=== PATIENT | male | born 1995 ===

== ENCOUNTER 2017-01-29 17:23 | Observation (INO) | payer OTHER ==
[2017-01-29] MEDS ORDERED: HOME MEDICATION LIST NEEDED 1 EA EACH MC ONE (17:38)
[2017-01-29] MEDS ORDERED: IBUPROFEN 600 MG TABLET PO PRN (17:41)
[2017-01-29 17:54] LABS: ALBUMIN 4.7 g/dL (3.5-5.0); BILIRUBIN, DIRECT 0.1 mg/dL (0.0-0.4); BILIRUBIN, TOTAL 0.7 mg/dL (0.2-1.3); TOTAL PROTEIN 8.1 g/dL (6.3-8.2)
[2017-01-29] MEDS ORDERED: ONDANSETRON HCL 4 MG/2 ML VIAL IV PRN (18:14)
[2017-01-29] MEDS: DEXTROSE 5% NS 1000 ML 1,000 ML IV SCH (18:27)
[2017-01-29] MEDS ORDERED: DEXTROSE 5% NS 1000 ML 1,000 ML IV ONE (18:29)
--- NOTE | 2017-01-29 18:43 | RADIOLOGY REPORT ---
HISTORY: Fever. COMPARISON: None FINDINGS: PA and lateral chest radiographs reveal the cardiac silhouette is normal in size. No pneumothorax is identified. The lungs are clear. No acute osseous fractures are identified. IMPRESSION: Negative chest. Final Electronic Signature: This report was electronically signed by Sg Perdomo MD on 01/30/20 17 6:41 PM. lucy /
[2017-01-29] MEDS ORDERED: ACETAMINOPHEN 325 MG TABLET PO PRN (19:00)
[2017-01-30] MEDS: DEXTROSE 5% NS 1000 ML 1,000 ML IV SCH (00:54)
[2017-01-30 06:25] VITALS: BP 113/57; PULSE 93; RESP 22; TEMP 99.1; O2SAT 95
[2017-01-30 07:07] LABS: A/G RATIO 1.2; ALBUMIN 3.6 g/dL (3.5-5.0); ALKALINE PHOSPHATASE 62 U/L (38-126); ALT 36 U/L (21-72); AST 26 U/L (17-59); BILIRUBIN, TOTAL 0.6 mg/dL (0.2-1.3); BLOOD UREA NITROGEN 10 mg/dL (9-20); CALCIUM 9.4 mg/dL (8.4-10.2); CHLORIDE 105 mmol/L (98-107); EST GLOMERULAR FILTRATION RATE > 60 mL/min; GLUCOSE 100 mg/dL (70-100); POTASSIUM 3.9 mmol/L (3.5-5.1); SODIUM 138 mmol/L (137-145); TOTAL PROTEIN 6.6 g/dL (6.3-8.2)
[2017-01-30 07:30] LABS: EOSINOPHILS 0.8 % (0.0-6.0); EOSINOPHILS# 0.1 X 10^3uL (0.0-0.4); HEMATOCRIT 40.4 % (42.0-54.0); HEMOGLOBIN 13.9 g/dL (14.0-18.0); LYMPHOCYTES 17.2 % (20.0-40.0); LYMPHOCYTES# 1.1 X 10^3uL (0.8-3.8); MEAN CELL VOLUME 82.5 fL (80.0-100.0); MEAN CORPUS. HGB CONCENTRATION 34.3 g/dL (32.0-36.0); MEAN CORPUSCULAR HEMOGLOBIN 28.4 pg (29.0-35.0); MEAN PLATELET VOLUME 8.6 fL (7.4-10.4); MONOCYTES 7.5 % (2.0-10.0); MONOCYTES# 0.5 X 10^3uL (0.2-1.0); NEUTROPHILS 74.5 % (54.0-75.0); RED BLOOD COUNT 4.89 X 10^6uL (4.20-6.10); WHITE BLOOD COUNT 6.7 X 10^3uL (3.9-10.7)
--- NOTE | 2017-01-30 09:22 | DC SUMMARY: IM Note ---
Discharge Summary: IM/Peds Provider: Date of Admission: 01/29/17 Admitting Provider: BECKI SANTO MD Attending Provider: BECKI SANTO MD Discharging Provider: BECKI SANTO MD Primary Care Provider: Discharge Date: 01/30/17 - Diagnosis (1) Dehydration Status: Acute (2) Orthostatic hypotension Status: Acute (3) Nausea Status: Acute Hospital Course: Pt admitted after hours of IV hydration in clinic, still orthostatic. Feels fine on his feet now, up and voiding, eating and drinking. Labs and CXR were very reassuring. This appears to have been a viral syndrome (no further fever, no leukocytosis,BCx P but unlikely to yield anything) and simple home care will do well from here. Encouraged to see his doc at home if fever, nausea, rapid heartrate continue. - Time Spent with Patient Total time spent providing and/or coordinating discharge services: Time with patient DS: Less than 30 minutes Discharge - Patient/Caregiver Discharge Instructions Activity Level: take it easy until you feel stronger Diet: as tolerated; keep it simple, fluids are the important thing Additional Instructions: See your doc this week if nausea, fever, weakness or elevated heart rate (100 or more) continue. Overall discharge status: patient is progressing back to baseline Disposition: HOME, SELF-CARE Discharge Summary Data - Medication History Medication History: Home Medications Omeprazole 20 mg PO DAILY 01/30/17 Inpatient Medications 01/29/17 17:41 Ibuprofen [Motrin] 600 mg PO Q6H PRN 01/29/17 18:00 Dextrose 5% Ns 1000 ml [D5 Ns 1000 ml] 1,000 ml IV CONT 01/29/17 18:14 Ondansetron HCl [Zofran] 4 mg IV Q6H PRN 01/29/17 19:00 Acetaminophen [Tylenol] 650 mg PO Q6H PRN Procedures and tests throughout hospitalization: Completed Lab Orders 01/29/17 17:38 HEPATIC PANEL [CHEM] Urgent 01/30/17 05:00 cmp [COMPREHENSIVE METABOLIC PANEL] [CHEM] AMDRAW Completed Imaging Orders 01/29/17 17:41 CXR 2V [id number] [RAD] Stat Pending Orders 01/29/17 17:38 Admit: Observation Routine Activity: BRP w/ Assist Only . Advance diet as tolerated . Intake and Output QSHIFT I&O Resuscitation Status Routine Titrate Oxygen TITRATE B/W 88-92% Vital Signs ROUTINE VITALS (Q4H) 01/29/17 17:41 Ibuprofen [Motrin] 600 mg PO Q6H PRN 01/29/17 18:00 Dextrose 5% Ns 1000 ml [D5 Ns 1000 ml] 1,000 ml IV CONT 01/29/17 18:14 Ondansetron HCl [Zofran] 4 mg IV Q6H PRN 01/29/17 18:18 BLOOD CULTURE [BC] Urgent 01/29/17 19:00 Acetaminophen [Tylenol] 650 mg PO Q6H PRN 01/29/17 20:30 BLOOD CULTURE [BC] Routine BLOOD CULTURE [BC] Routine 01/30/17 05:00 CBC AUTO DIF, MDIF/RMOR IF IND [HEM] AMDRAW COMPREHENSIVE METABOLIC PANEL [CHEM] Routine 01/30/17 Breakfast Full Liquid [DIET] Labs on day of discharge: Labs from last 24 hours 01/30/17 01/30/17 01/29/17 05:00 05:00 17:38 WBC 6.7 RBC 4.89 Hgb 13.9 L Hct 40.4 L MCV 82.5 MCH 28.4 L MCHC 34.3 RDW 13.0 Plt Count 219 MPV 8.6 Neutrophils % 74.5 Lymphocytes % 17.2 L Eosinophils % 0.8 Basophils % 0.0 Neutrophils # 5.0 Lymphocytes # 1.1 Monocytes 7.5 Monocytes # 0.5 Eosinophils # 0.1 Basophils # 0.0 Sodium 138 Pending Potassium 3.9 Pending Chloride 105 Pending Carbon Dioxide 23 Pending BUN 10 Pending Creatinine 1.0 Pending GFR Calculation > 60 Pending Glucose 100 Pending Calcium 9.4 Pending Total Bilirubin 0.6 Pending 0.7 Direct Bilirubin 0.1 AST 26 Pending 73 H ALT 36 Pending 44 Alkaline Phosphatase 62 Pending 98 Total Protein 6.6 Pending 8.1 Albumin 3.6 D Pending 4.7 Albumin/Globulin Ratio 1.2 Pending IM: Discharge Physical Exam - I&O/Vital Signs I&O: Intake & Output 01/29/17 01/30/17 01/30/17 21:59 05:59 13:59 Intake Total 1300 Balance 1300 Weight 92.986 kg Intake: IV 1300 Left Antecubital 1300 Other: Urine Appearance Clear Clear Urine Color Yellow Yellow Voiding Method Toilet Toilet Vital Signs: Last Vital Signs Temp 37.3 C 01/30/17 06:23 Pulse 93 H 01/30/17 06:23 Resp 22 01/30/17 08:35 BP 113/57 01/30/17 06:23 Pulse Ox 95 01/30/17 08:35 Oxygen Delivery Method Room Air - Constitutional General appearance: Present: average body habitus. Absent: acute distress - Head Head exam: Present: atraumatic - Eye Eye exam: Present: normal appearance - ENT ENT exam: Present: mucous membranes moist - Neck Neck exam: Absent: lymphadenopathy - Respiratory Respiratory exam: Present: clear - Cardiovascular Cardiovascular exam: Present: RRR (still borderline elevated HR) - GI/Abdominal GI/Abdominal exam: Present: soft - Neurological Exam Neurological exam: Present: alert, oriented X3 - Psychiatric Psychiatric exam: Present: normal affect - Skin Skin exam: Absent: rash
--- NOTE | 2017-02-18 17:57 | HISTORY & PHYSICAL ---
Assessment and Plan: 1. Dehydration E86.0 NS infusion CBC with Auto Differential Basic Metabolic Panel promethazine (PHENERGAN) injection 12.5 mg 0.5 mL POCT URINALYSIS AUTOMATED READER CPT 73122-CPFRYZ RESULT ENTRY 2. Nausea R11.0 promethazine (PHENERGAN) injection 12.5 mg 0.5 mL Medications Placed This Encounter Medications NS infusion promethazine (PHENERGAN) injection 12.5 mg 0.5 mL There are no discontinued medications. Patient Instructions None Subjective: Patient ID: Thomas Paulson is a 21 y.o. male who presents to [facility] for feeling poorly during road trip today HPI Comments: 21 y/o [place] started feeling nauseated earlier today. Went over [place], but has been at altitude for quite a few days, so this does not seem like altitude sickness. Has been trying Tums, various OTC meds and sips of fluids today but not able to take much PO. No specific c/o x nausea; minimal DIAMOND, No abd pain, no vomitting, no diarrhea. Had nausea briefly about 5 days ago also; as did another member of their travel libertarian. Also had a nosebleed that day, but none since. Has been conscientious about fluids thr'out their trip, which [place]. CURRENT MEDICATIONS: No current outpatient prescriptions on file. Current Facility-Administered Medications Medication Dose Route Frequency Provider Last Rate Last Dose NS infusion Intravenous Continuous 200 mL/hr at 01/29/17 1400 ALLERGIES: Review of patient's allergies indicates not on file. I have reviewed, verified and personally updated the past medical history. Review of Systems Objective: Vital Signs: BP 90/64 Pulse 125 Temp 38.6 C (101.5 F) (Temporal Artery) Resp (P) 16 SpO2 96% Physical Exam Constitutional: He is oriented to person, place, and time. He appears well- developed and well-nourished. He appears distressed (near syncope on arrival and very difficult to ambulate to BR after 2-3 liters of IV fluid). Eyes: Conjunctivae are normal. Cardiovascular: Regular rhythm. No murmur heard. Pulmonary/Chest: Effort normal and breath sounds normal. No respiratory distress. Abdominal: Soft. Bowel sounds are normal. He exhibits no distension and no mass. There is no tenderness. There is no guarding. Musculoskeletal: He exhibits no edema. Neurological: He is alert and oriented to person, place, and time. Groggy after 12.5 mg phenergan x2 DATA: Laboratory results reviewed and are pertinent for normal CBC and chemistries, nl UA TIME/COMMUNICATION: N/A Pt rec'd 4 L fluids, voided once for nl UA, but still orthostatic and unsafe for his mom to assist him at hotel, I did not recommend continued traveling with unknown needs. To [facility] [place] for further w/u, IVF and monitoring. Betty Bradford MD [facility]
== END 2017-01-30 09:23 | disposition home or self-care (01) ==
LOC: IN 17:23
PROVIDERS: ADMIT Family Medicine; ATTEND Family Medicine
DX: E86.0 Dehydration (principal); R50.9 Fever, unspecified; R11.0 Nausea; I95.1 Orthostatic hypotension
CPT/HCPCS: 36415; 71020; 80053; 80076; 85025; 87040; 96361; 96365; 96366; G0378; G0379; J7042